=== PATIENT | female | born 1985 | race Caucasian/White ===

== ENCOUNTER → 2017-08-22 | Outpatient (CLI) | payer MEDICAID ==
[~2017-08-22] MED LIST: CIPRO 500MG TA500 MG PO; EXCEDRIN TENSIO1 TAB PO; GOOD NEIGHBOR650 MG PO
[2017-08-22 15:33] LABS: HEMOGLOBIN 14.3 g/dL (12.2-16.2); LYMPH # 1.8 K/mm3 (0.7-4.5); LYMPH % 24.4 % (10-50.0)
[2017-08-22 16:00] LABS: BUN 10 mg/dL (7-18)
[2017-08-22 16:01] LABS: GFR (ESTIMATED) 73 ML/MIN (59-)
[2017-08-24 06:41] LABS: HBsAg Screen Negative (Negative); Hep A Ab, IgM Negative (Negative); Hep B Core Ab, IgM Negative (Negative); Hep C Virus Ab >11.0 (0.0-0.9)
[2017-08-24 07:37] LABS: HIV Screen 4th Generation wRfx Non Reactive (Non Reactive)
== END ==
LOC: LAB 15:06
PROVIDERS: Physician Assistant
DX: R00.0 Tachycardia, unspecified (principal); Z00.00 Encounter for general adult medical examination without abnormal findings
CPT/HCPCS: G0432

== ENCOUNTER → 2017-09-23 | Outpatient (CLI) | payer MEDICAID ==
[2017-09-27 03:36] LABS: Hepatitis C Genotype 3 (.)
== END ==
LOC: LAB 17:22
PROVIDERS: Physician Assistant
DX: R76.8 Other specified abnormal immunological findings in serum (principal)